=== PATIENT | female | born 1960 | race African-American/Black ===

== ENCOUNTER 2020-12-07 07:22 | Outpatient (REF) | payer MEDICARE, SELFPAY ==
[2020-12-07 08:00] LABS: Hematocrit 38.8 % (37-47); Hemoglobin 12.4 g/dl (12.0-16.0); Mean Corpuscular Hemoglobin 29.7 pg (27.0-33.0); Mean Corpuscular Volume 92.8 fL (80-98); Mean Platelet Volume 10.7 fL (9.4-12.3); Platelet Count 385 X10*3/uL (160-400); Red Blood Count 4.18 X10*6/uL (4.20-5.50); Red Cell Distribution Width 13.2 % (11.0-16.0); White Blood Count 5.4 X10*3/uL (4.8-10.8)
[2020-12-07 08:15] LABS: Alanine Aminotransferase 37 U/L (0-31); Albumin Level 3.4 g/dL (3.5-5.0); Alkaline Phosphatase 46 U/L (39-117); Anion Gap 13 (12-20); Aspartate Amino Transferase 42 U/L (5-31); Bilirubin Total 0.5 mg/dL (0.0-1.0); Blood Urea Nitrogen 21 mg/dL (9-16); Calcium 9.7 mg/dL (8.4-10.2); Carbon Dioxide 27 mmol/L (22-29); Chloride 104 mmol/L (96-108); Estimated Glomerular Filt Rate > 60; Glucose Random 85 mg/dL (60-115); Potassium 4.3 mmol/L (3.3-5.1); Sodium 140 mmol/L (135-145)
== END 2020-12-07 07:23 | disposition home or self-care (01) ==
LOC: HO.MMNH1L 07:22
PROVIDERS: Visit Provider Family Medicine
DX: U07.1 COVID-19 (principal); M79.7 Fibromyalgia
CPT/HCPCS: 36415; 80053; 85027

== ENCOUNTER 2020-12-11 10:27 | Outpatient (REF) | payer MEDICARE, SELFPAY ==
[2020-12-11 07:05] LABS: Hematocrit 36.2 % (37-47); Hemoglobin 11.6 g/dl (12.0-16.0); Mean Corpuscular Hemoglobin 30.1 pg (27.0-33.0); Mean Corpuscular Volume 93.8 fL (80-98); Mean Platelet Volume 9.7 fL (9.4-12.3); Platelet Count 479 X10*3/uL (160-400); Red Blood Count 3.86 X10*6/uL (4.20-5.50); Red Cell Distribution Width 13.4 % (11.0-16.0); White Blood Count 5.1 X10*3/uL (4.8-10.8)
[2020-12-11 07:34] LABS: Alanine Aminotransferase 26 U/L (0-31); Alkaline Phosphatase 51 U/L (39-117); Anion Gap 13 (12-20); Aspartate Amino Transferase 16 U/L (5-31); Bilirubin Total 0.5 mg/dL (0.0-1.0); Blood Urea Nitrogen 16 mg/dL (9-16); Carbon Dioxide 28 mmol/L (22-29); Estimated Glomerular Filt Rate > 60; Glucose Random 96 mg/dL (60-115); Total Protein 6.7 g/dL (6.5-8.0)
[2020-12-11 08:08] LABS: Albumin Level 3.5 g/dL (3.5-5.0); Calcium 9.6 mg/dL (8.4-10.2); Chloride 103 mmol/L (96-108); Potassium 3.7 mmol/L (3.3-5.1); Sodium 140 mmol/L (135-145)
== END 2020-12-11 10:28 | disposition home or self-care (01) ==
LOC: HO.MMNH1L 10:27
PROVIDERS: Visit Provider Family Medicine
DX: M79.7 Fibromyalgia (principal); U07.1 COVID-19
CPT/HCPCS: 36415; 80053; 85027